=== PATIENT | female | born 1980 | race Caucasian/White ===

== ENCOUNTER 2019-02-04 05:37 | Emergency (ER) | payer OTHER ==
[~2019-02-04] VITALS: Ht 172.7 cm; Wt 77.6 kg
[2019-02-04 05:52] VITALS: Ht 172.7 cm; Wt 77.6 kg
[2019-02-04 10:44] VITALS: BP 124/79
== END 2019-02-04 10:44 | disposition home or self-care (01) ==
LOC: ED 05:37
DX: G43.909 Migraine, unspecified, not intractable, without status migrainosus (principal)
CPT/HCPCS: J1200; J1885; J2765; J7030